=== PATIENT | female | born 1990 | race Caucasian/White ===

== ENCOUNTER 2024-08-24 10:33 | Inpatient (IN) ==
[2024-08-24] MEDS ORDERED: DEXTROSE 5% 1,000 ML IV PRN (10:40)
[2024-08-24] MEDS ORDERED: DEXTROSE 50% 50 ML SYRINGE IV PRN (10:40)
[2024-08-24] MEDS ORDERED: SODIUM CHLORIDE 0.9% 1,000 ML IV PRN (10:40)
[2024-08-24] MEDS ORDERED: LACTATED RINGER'S 1,000 ML IV PRN (10:40)
[2024-08-24] MEDS ORDERED: INSULIN REGULAR 250 UNITS in SODIUM CHLORIDE 0.9% 247.5 ML IV PRN (10:48)
[2024-08-24 11:28] LABS: Hematocrit (blood only) 40.2 % (37.0-47.0); Hemoglobin 13.8 g/dl (12.0-16.0); Mean Corpuscular Hemoglobin 30.5 pg (25.0-34.0); Mean Corpuscular Hgb Conc 34.3 g/dL (32.0-36.0); Mean Corpuscular Volume 88.9 fL (80.0-100.0); Mean Platelet Volume 10.7 fL (9.4-12.4); Platelet Count 220 K/uL (130-400); RDW Coefficient of Variation 12.9 % (11.5-14.5); RDW Standard Deviation 42.4 fL (36.4-46.3); Red Blood Count 4.52 M/uL (4.20-5.40); White Blood Count 9.95 K/ul (4.8-10.8)
[2024-08-24] MEDS: OXYTOCIN 30 UNITS/NSS 30 UNITS/500 ML BAG IV PRN (12:04)
[2024-08-24] MEDS: LIDOCAINE 1% LOCAL 20 ML VIAL INFIL PRN (12:12)
--- NOTE | 2024-08-24 12:18 | Delivery Summary ---
Vaginal Delivery Summary Date of Service August 24, 2024 Vaginal Delivery Summary and 2nd Degree LAC Spontaneous vaginal delivery the patient arrived in active labor group B strep negative she wanted to to be unmedicated and she was 9-1/2 cm she rapidly progressed to 10 cm attempt was made to start the insulin protocol but she rapidly progressed to fully dilated and then pushed delivering a baby in occiput anterior position fluid was clear there was no nuchal cord gentle traction on the baby with no excessive force resulted in easy delivery of a live vigorous male infant baby was placed in the maternal abdomen delayed cord clamping at mother's request cord was then clamped and cut cord blood obtained placenta removed with traction IV Pitocin started uterine tone excellent second-degree tear was repaired first by injecting with local anesthetic and then repairing with 3-0 Vicryl in the usual fashion sponge and instrument counts correct quantitative blood loss 105 mL [facility] Vaginal Delivery Charge Delivery Type Details: and 2nd Degree LAC
[2024-08-24] MEDS ORDERED: OXYTOCIN 30 UNITS/NSS 30 UNITS/500 ML BAG IV PRN (12:36)
[2024-08-24] MEDS ORDERED: oxyCODONE/ACETAMINOPHEN 5mg/325mg TAB PO PRN (12:36)
[2024-08-24] MEDS ORDERED: HYDROCORTISONE ACETATE 25 MG SUPP PR PRN (12:36)
[2024-08-24] MEDS ORDERED: bisacodyL 10 MG SUPP PR PRN (12:36)
[2024-08-24] MEDS: DIPHTHER/TETAN/PERTUS Vaccine (Tdap, Adol/Adult) 0.5mL IM ONE (14:10)
[2024-08-24] MEDS: BENZOCAINE 20% SPRY 85 APPLN/85 GM CAN EXT PRN (14:36)
[2024-08-24] MEDS: IBUPROFEN 600 MG TAB PO PRN (14:36)
[2024-08-24] MEDS: DOCUSATE SODIUM 100 MG CAP PO SCH (20:57)
[2024-08-24] MEDS: ACETAMINOPHEN 325 MG TAB PO PRN (20:58)
[2024-08-25] MEDS: PRENATAL VITAMIN 1 TAB PO SCH (08:26)
[2024-08-25] MEDS: LORATADINE 10 MG TAB PO SCH (08:26)
[2024-08-25 08:43] LABS: Hematocrit (blood only) 36.7 % (37.0-47.0); Hemoglobin 12.6 g/dl (12.0-16.0); Mean Corpuscular Hemoglobin 31.2 pg (25.0-34.0); Mean Corpuscular Hgb Conc 34.3 g/dL (32.0-36.0); Mean Corpuscular Volume 90.8 fL (80.0-100.0); Mean Platelet Volume 10.6 fL (9.4-12.4); Platelet Count 243 K/uL (130-400); RDW Coefficient of Variation 13.2 % (11.5-14.5); RDW Standard Deviation 43.1 fL (36.4-46.3); Red Blood Count 4.04 M/uL (4.20-5.40); White Blood Count 11.57 K/ul (4.8-10.8)
[2024-08-25] MEDS: bisacodyL 5 MG TABEC PO SCH (20:35)
[2024-08-26 06:19] LABS: Hematocrit (blood only) 32.7 % (37.0-47.0); Hemoglobin 11.1 g/dl (12.0-16.0)
--- NOTE | 2024-08-26 06:31 | Obstetrical Progress Note ---
Date of Service August 26, 2024 Assessment & Plan (1) Gestational diabetes: (2) Asthma: (3) Encounter for care and examination after delivery: Plan Pt is 33 yo post- day 1 s/p at 37w0d. complicated by GDM and asthma. - Encourage ambulation and breast feeding - Pain control with Tylenol and ibuprofen - Discharge today - Follow up with Dr. Steward in 6 weeks Admission and Anticipated Discharge Date Admission Date: August 24, 2024 Subjective Pt is 33 yo post- day 1 s/p at 37w0d. complicated by GDM and asthma. Ambulation:In and out of room Voiding:voiding normally Passing gas: yes BM: yes, painful at sutures. Now using stool softeners Diet tolerance: regular diet Lochia:bloody, small clots Feeding type: breast Current pain level: 1-4 /10 improved with ibuprofen and tylenol Resting comfortably this morning in NAD. Denies SONG, CP, SOB, N/V/D, LE pain/swelling. Review of Systems Review of Systems: As per HPI Physical Exam Constitutional: WD/WN, vitals as above Respiratory: normal respiratory effort, lungs clear to auscultation Cardiovascular: RRR, no murmur, no edema Gastrointestinal (Abdomen): normal bowel sounds, soft, nontender, no hepatosplenomegaly Uterine fundus firm and at 1 cm below level of umbilicus Neurologic: PERRL, EOMI, accommodation nl, no face palsy, no dysarthria Moving all 4 extremities on command Psychiatric: A+Ox3, euthymic affect Results & Data Vital Signs (Past 12 Hours) Vital Signs Temp Pulse Resp BP Pulse Ox O2 Del Method 08/26/24 02:01 36.5 C 76 16 101/63 99 Room Air 08/25/24 19:07 36.7 C 89 18 121/82 98 Room Air Resident Activity Tracking Resident Involvement: Resident Care Provided Care Provided: Adult Hospital Medicine
[2024-08-26 15:24] VITALS: BP 123/73; PULSE 90; RESP 16; TEMP 98.4; O2SAT 96
== END 2024-08-26 17:00 | disposition home or self-care (01) | DRG 807 ==
LOC: OPB 10:33 → 4S1 10:34 → 4E2 15:30